=== PATIENT | male | born 1955 | race Caucasian/White ===

== ENCOUNTER 2022-06-30 19:27 | Emergency (ER) | payer MEDICARE, SELFPAY ==
[2022-06-30] VITALS (19 sets, daily range): BP systolic 125–146; BP diastolic 86–100; RESP 18; TEMP 36.6; O2SAT 89–100
--- NOTE | 2022-06-30 19:28 | ECG_ITS ---
[facility] Test Date: 2022-06-30 Pat Name: Nick Ruby Department: Room: Gender: Male Investigative Analyst: : 1955 Requested By: Jen Ibanez Order Number: [id number] Caitlin MD: Nolberto Bravo M.D. Measurements Intervals [place] Rate: 96 P: 147 PA: 136 QRS: -22 QRSD: 90 T: 141 QT: 347 QTc: 438 Interpretive Statements ECTOPIC ATRIAL RHYTHM LEFT ATRIAL ENLARGEMENT [-0.15mV P-WAVE IN V1/V2] POSSIBLE LATERAL MYOCARDIAL INFARCTION , OF INDETERMINATE AGE [30 ms Q WAVE IN I/aVL/V5/V6] No previous ECG available for comparison Electronically Signed On 07-01-2022 14:46:07 MISSION ANALYST by Nolberto Bravo M.D. [id number]
--- NOTE | 2022-06-30 19:29 | XRR_ITS ---
PROCEDURE INFORMATION: Exam: XR Chest Exam date and time: 06/30/2022 7:48 PM Age: 67 years old Clinical indication: Cough and shortness of breath; Additional info: SOB, weight loss, weakness, nausea, vomiting TECHNIQUE: Imaging protocol: Radiologic exam of the chest. Views: 1 view. COMPARISON: No relevant prior studies available. FINDINGS: Lungs: Unremarkable. No consolidation. Pleural spaces: Unremarkable. No pleural effusion. No pneumothorax. Heart/Mediastinum: Unremarkable. No cardiomegaly. Bones/joints: Unremarkable. XR/XR chest 1V portable [id number] IMPRESSION: No acute findings.
[2022-06-30 19:53] LABS: Basophils # 0.1 10^3/uL (0.0-0.1); Basophils % 0.4 %; Eosinophils % 0.2 %; Hemoglobin 15.6 g/dL (11.7-16.6); Lymphocytes # 1.5 10^3/uL (0.8-4.8); Lymphocytes % 12.4 %; Mean Corpuscular HGB Conc 33.2 g/dL (30.0-36.0); Mean Corpuscular Hemoglobin 29.3 pg (28.0-34.0); Mean Corpuscular Volume 88.3 fl (80-94); Mean Platelet Volume 9.1 fL (7.4-10.4); Monocytes # 0.9 10^3/uL (0.2-0.9); Monocytes % 7.6 %; Neutrophils # 9.36 10^3/uL (1.8-7.7); Neutrophils % 79.1 %; Nucleated Red Blood Cells % 0 %; Platelet Count 528 10^3/cmm (130-400); Red Blood Count 5.32 10^6/uL (4.1-5.3); Red Cell Distribution Width 12.7 % (12.1-15.1); White Blood Count 11.8 10^3/uL (4.0-10.0)
[2022-06-30 20:11] LABS: SARS Covid-2 Antigen negative (Negative)
[2022-06-30 20:12] LABS: Influenza A by IFA negative (Negative); Influenza B by IFA negative (Negative)
[2022-06-30 20:32] LABS: Alanine Aminotransferase 10 U/L (0-41); Albumin Level 4.8 g/dL (3.5-5.2); Alkaline Phosphatase 92 U/L (40-130); Anion Gap 15.6 (5-19); Aspartate Amino Transferase 16 U/L (0-40); Blood Urea Nitrogen 14 mg/dL (8-23); Carbon Dioxide 32 mmol/L (22-29); Chloride 95 mmol/L (98-107); Glomerular Filtration Rate 84.7 mL/min (90-130); Glucose 138 mg/dL (65-115); NT Pro B Type Natriuretic Pept 108 pg/mL (0-125); Osmolality Calculated 289 mOsm/kg (285-295); Potassium 4.6 mmol/L (3.5-5.1); Sodium 138 mmol/L (136-145); Total Protein 8.8 g/dL (6.6-8.7)
[2022-06-30] MEDS: ondansetron 2 mg/ML SDV 2 mL 4 MG IVP (21:50)
[2022-06-30] MEDS: sodium chloride 0.9% 1,000 ML 999 ML IV (21:50)
--- NOTE | 2022-06-30 21:57 | ED_ITS ---
HPI - Nausea/Vomiting/Diarrhea General: Chief complaint: Nausea/Vomiting/Diarrhea Stated complaint: V\SOB\Conjestion\Feve Time Seen by Provider: 06/30/22 21:34 History of Present Illness: Patient is a 67-year-old male comes to the ED with nausea and vomiting. Patient denies any past medical history and states that he has not seen his doctor probably 15 years. Little over a week ago patient started having symptoms of nasal drainage and congestion, cough, shortness of breath, body aches and chills. Those symptoms improved, but yesterday patient started developing nausea and vomiting. He has not been able to keep any food or fluids down since yesterday. He says he has had over 10 episodes of emesis in the last 24 hours. Denies any diarrhea. He states that over the past couple months he has lost over 20 pounds. Denies any black or tarry stools, blood in stool. He usually has 1 BM every couple days. Denies any abdominal pain. Endorses having a fever yesterday. Associated nausea: Yes Associated symtoms: Reports nausea; Denies change in vision, chest pain, dysuria, fatigue, headache(s) or palpitatio ns Review of Systems Const: Reports: fever(s), chills, body aches and change in appetite (Decreased); Denies: fatigue Eyes: Denies: change in vision or eye discomfort ENMT: Denies: throat pain, odynophagia, nasal discharge or nasal congestion Card: Denies: chest pain, palpitations, edema, swelling of feet/ankles, dyspnea on exertion or orthopnea Resp: Reports: dyspnea and productive cough; Denies: non-productive cough GI: Reports: nausea and vomiting; Denies: abdominal pain, diarrhea, constipation or hematochezia : Denies: flank pain, difficulty urinating, dysuria or hematuria Musc: Denies: neck pain, back pain or extremity swelling Skin/Breast: Denies: rash or new lesions Neuro: Denies: headache(s), numbness in extremities or weakness in extremities PFS ED PFSH: Medical History (Updated 07/01/22 @ 03:14 by FARTUN Castillo) No pertinent family history Surgical History (Updated 07/01/22 @ 03:14 by FARTUN Castillo) No pertinent past surgical history Physical Exam Const: COMMON NORMALS: patient oriented x3 GENERAL APPEARANCE: cooperative and comfortable HENMT: COMMON NORMALS: normocephalic HEAD & SCALP: normocephalic MOUTH: Normal oral and palatal mucosa present THROAT: posterior oropharynx normal and uvula midline Neck/C-Spine: COMMON NORMALS: supple GENERAL: Yes normal visual inspection Resp: COMMON NORMALS: normal respiratory effort, No retractions, No use of accessory muscles and clear to auscultation bilaterally AUSCULTATION: clear to auscultation bilaterally Cardio: COMMON NORMALS: regular rate, regular rhythm, S1 normal heart sound present, S2 normal heart sound present, No gallops present (Cardio), No clicks present (Cardio), No murmurs present (Cardio) and Peripheral pulses 2+ throughout RATE: regular rate RHYTHM: regular rhythm HEART SOUNDS: S1 normal heart sound present and S2 normal heart sound present PERIPHERAL PULSES: Peripheral pulses 2+ throughout GI: COMMON NORMALS: Normal to inspection, nondistended, normoactive bowel sounds present, Soft to palpation, non-tender and no masses PALPATION: Yes Soft to palpation OTHER: Abdomen is nontender to palpation in all 4 quadrants : COMMON NORMALS: Yes no CVA tenderness BLADDER/KIDNEY EXAM: Yes no CVA tenderness Back/Pelvis: COMMON NORMALS: no CVA tenderness Extremity: COMMON NORMALS: normal to inspection Neuro: COMMON NORMALS: patient oriented x3 GAIT: Yes Normal gait present Skin: GENERAL SKIN EXAM: dry skin Course 2 Vital Signs: Vital signs: Vital Signs Temperature 98 F 06/30/22 19:29 Pulse Rate 78 07/01/22 00:44 Respiratory Rate 14 07/01/22 00:44 Blood Pressure 155/93 07/01/22 00:44 Pulse Oximetry 97 07/01/22 00:44 Oxygen Delivery Me thod 07/01/22 00:44 MDM - Nausea/Vomiting/Diarrhea Medical Decision Making Patient is a 67-year-old male comes to the ED with nausea and vomiting. Patient denies any past medical history and states that he has not seen his doctor probably 15 years. Little over a week ago patient started having symptoms of nasal drainage and congestion, cough, shortness of breath, body aches and chills. Those symptoms are improving, but yesterday patient started developing nausea and vomiting. He has not been able to keep any food or fluids down since yesterday. He says he has had over 10 episodes of emesis in the last 24 hours. Denies any diarrhea. He states that over the past couple months he has lost over 20 pounds. Denies any black or tarry stools, blood in stool. He usually has 1 BM every couple days. Denies any abdominal pain. Endorses having a fever yesterday. Vitals are stable. Exam of patient is benign and he appears nonto xic in no acute distress. No abdominal tenderness to palpation. White blood cell count of 11.8 but the rest of CBC and CMP are unremarkable. Chest x-ray shows no acute findings. KUB shows no acute findings. COVID and influenza were both negative. Patient was given a liter of IV fluids and nausea meds here in the ED and his symptoms improved and he was feeling better. He was able to tolerate p.o. fluids here in the ED. Nausea and vomiting likely due to viral syndrome. He was diagnosed with bronchitis and viral syndrome and discharged home with a prescription for azithromycin, Medrol Dosepak and Zofran. He was told to have a clear liquid diet for the next 12 to 24 hours and slowly advance diet as tolerated. Return to ED precautions given. Follow-up with your primary care physician within the next week for reevaluation. I discussed with patient that I could refer him to a PCP if needed but he said he wanted to call around and set up his own primary care physician appointment. Patient understood and agreed with plan. Lab Data I reviewed the patient's lab results. 06/30/22 19:41 06/30/22 19:41 Radiology Impressions Chest X-Ray 06/30/22 19:29 IMPRESSION: No acute findings. KUB X-Ray 06/30/22 22:01 IMPRESSION: No acute findings. Laboratory Results WBC 11.8 10^3/uL (4.0-10.0) H 06/30/22 19:41 RBC 5.32 10^6/uL (4.1-5.3) H 06/30/22 19:41 Hgb 15.6 g/dL (11.7-16.6) 06/30/22 19:41 Hct 47.0 % (42.0-52.0) 06/30/22 19:41 MCV 88.3 fl (80-94) 06/30/22 19:41 MCH 29.3 pg (28.0-34.0) 06/30/22 19:41 MCHC 33.2 g/dL (30.0-36.0) 06/30/22 19:41 RDW 12.7 % (12.1-15.1) 06/30/22 19:41 Plt Count 528 10^3/cmm (130-400) H 06/30/22 19:41 MPV 9.1 fL (7.4-10.4) 06/30/22 19:41 Neut % (Auto) 79.1 % 06/30/22 19:41 Lymph % (Auto) 12.4 % 06/30/22 19:41 Runnels % (Auto) 7.6 % 06/30/22 19:41 Eos % (Auto) 0.2 % 06/30/22 19:41 Baso % (Auto) 0.4 % 06/30/22 19:41 Neut # (Auto) 9.36 10^3/uL (1.8-7.7) H 06/30/22 19:41 Lymph # (Auto) 1.5 10^3/uL (0.8-4.8) 06/30/22 19:41 Runnels # (Auto) 0.9 10^3/uL (0.2-0.9) 06/30/22 19:41 Eos # (Auto) 0.0 10^3/uL (0.0-0.8) 06/30/22 19:41 Baso # (Auto) 0.1 10^3/uL (0.0-0.1) 06/30/22 19:41 Nucleated RBC % (auto) 0 % 06/30/22 19:41 Nucleated RBCs # 0.0 /100WBC 06/30/22 19:41 Sodium 138 mmol/L (136-145) 06/30/22 19:41 Potassium 4.6 mmol/L (3.5-5.1) 06/30/22 19:41 Chloride 95 mmol/L (98-107) L 06/30/22 19:41 Carbon Dioxide 32 mmol/L (22-29) H 06/30/22 19:41 Anion Gap 15.6 (5-19) 06/30/22 19:41 BUN 14 mg/dL (8-23) 06/30/22 19:41 Creatinine 0.9 mg/dL (0.7-1.2) 06/30/22 19:41 GFR Calculation 84.7 mL/min (90-130) L 06/30/22 19:41 Glucose 138 mg/dL (65-115) H 06/30/22 19:41 Calculated Osmolality 289 mOsm/kg (285-295) 06/30/22 19:41 Calcium 11.0 mg/dL (8.5-10.5) H 06/30/22 19:41 Total Bilirubin 1.0 mg/dL (0.15-1.2) 06/30/22 19:41 AST 16 U/L (0-40) 06/30/22 19:41 ALT 10 U/L (0-41) 06/30/22 19:41 Alkaline Phosphatase 92 U/L (40-130) 06/30/22 19:41 NT-Pro-B Natriuret Pep 108 pg/mL (0-125) 06/30/22 19:41 Total Protein 8.8 g/dL (6.6-8.7) H 06/30/22 19:41 Albumin 4.8 g/dL (3.5-5.2) 06/30/22 19:41 Globulin 4.0 g/dL (1.3-4.6) 06/30/22 19:41 Influenza Type A Ag negative (Negative) 06/30/22 19:41 Influenza Type B Ag negative (Negative) 06/30/22 19:41 SARS-CoV-2 Ag (Rapid) negative (Negative) 06/30/22 19:41 Discharge Plan Discharge Patient Disposition: Home Clinical Impression: Viral syndrome, Bronchitis Condition: Stable Prescriptions: New azithromycin 250 mg tablet See Rx Instructions .ROUTE .COMPLEX Qty: 6 0RF Rx Instructions: For 250 mg dose pack: take 500 mg today (day 1), then 250 mg for 4 days (days 2-5) ondansetron 4 mg tablet,disintegrating 4 mg PO Q8H PRN (Reason: nausea and vomiting) Qty: 20 0RF Medrol (Pedro) 4 mg tablets,dose pack See Rx Instructions .ROUTE .COMPLEX Qty: 21 0RF Rx Instructions: orally per package directions Discharge Orders: Discharge ED (Routine); Ordered 07/01/22 Ordered By: Tam Lundberg Discharge Diet: Advance as tolerated and Clear Liquid Discharge Activity: Increase activity as tolerated Patient Instructions: Bronchitis (Acute) - Adult, Viral Syndrome (ED) Activity Restrictions/Additional Instructions: Follow-up with primary care provider in the next 5 to 7 days for reevaluation. Clear liquid diet for the next 24 hours and slowly advance diet as tolerated. Take medications as prescribed. Return to the ER or your medical provider if condition worsens. Please read and understand discharge instructions. Thank you for choosing [facility] for your healthcare needs today. Please realize this is an emergency room and that we are providing you with a medical screening exam and this may not be complete and all inclusive of all the testing and or work up that you may need to determine your ailment or severity of your illness. It is very important that you follow up as instructed or that you return to the Emergency Department should you have concerns or if your condition changes or worsens in any way. Coding Level of Care Code ED [employer] for Tyson Lang Exam Comprehensive
--- NOTE | 2022-06-30 22:01 | XRR_ITS ---
PROCEDURE INFORMATION: Exam: XR Abdomen Exam date and time: 06/30/2022 10:07 PM Age: 67 years old Clinical indication: Nausea and vomiting; Additional info: N/v TECHNIQUE: Imaging protocol: Radiologic exam of the abdomen. Views: Frontal supine view of the abdomen. 1 View. COMPARISON: CR (CHEST, ) 06/30/2022 7:48 PM FINDINGS: Gastrointestinal tract: Normal. No bowel dilation. Bones/joints: Unremarkable. XR/XR KUB [id number] IMPRESSION: No acute findings.
[2022-06-30] MEDS: metoclopramide 5 mg/mL SDV 2 mL 10 MG IVP (23:27)
[2022-07-01 00:44] VITALS: BP 155/93; PULSE 78; RESP 14; O2SAT 97
== END 2022-07-01 00:46 | disposition home or self-care (01) ==
PROVIDERS: Emergency Medicine; Emergency Provider Physician Assistant
DX: B34.9 Viral infection, unspecified (principal); J40 Bronchitis, not specified as acute or chronic; Z20.822 Contact with and (suspected) exposure to COVID-19
CPT/HCPCS: 71045; 74018; 80053; 83880; 85025; 87426; 87804; 93005; 96361; 96374; 96375; 99285; J2405; J2765; J7030

== ENCOUNTER 2022-10-03 06:20 | Day surgery (SDC) | payer MEDICARE, SELFPAY ==
[2022-10-01 10:33] VITALS: BMI 24.4
[2022-10-03 06:36] VITALS: BP 123/82; PULSE 55; RESP 18; TEMP 36.1; O2SAT 98
[2022-10-03] MEDS: sodium chloride 0.9% 1,000 ML 30 ML IV (06:41)
--- NOTE | 2022-10-03 07:23 | ANES.PREANE2 ---
Pre-Anesthetic Assessment Height/Weight: Height 1.83 m Weight 81.647 kg Temp Pulse Resp BP Pulse Ox O2 Del Method 97 F L 55 L 18 123/82 98 Room Air 10/03/22 06:36 10/03/22 06:36 10/03/22 06:36 10/03/22 06:36 10/03/22 06:36 10/03/22 06:36 Operation Date: 10/03/22 08:00 Proposed Procedures p [id number] colon Z12.11(Not Applicable) - Herb Garcia DO Familial anesthetic complications: None Was Beta Oswaldo taken within 24 hours: N/A Was Clonidine taken within 24 hours: N/A Last intake: Intake Last Liquid Date 10/02/22 Last Liquid Time 22:00 Last Solid Date 10/01/22 Last Solid Time 20:00 Social No alcohol and No tobacco Exam alert, oriented x 3, clear to auscultation bilaterally and regular rate & rhythm Airway Mallampati: Class I Dentition: full GI pancreatitis in June Anesthetic Plan ASA status: 2 Anesthesia: MAC Risk of > 500 ml blood loss (7ml/kg in children): No Medications/Allergies Home Medications Medication Instructions Recorded Confirmed Last Taken Type No Known Home Medications 09/04/22 10/03/22 Unknown History Allergies Allergy/AdvReac Type Severity Reaction Status Date / Time No Known Allergies Allergy Verified 10/01/22 10:30 Current Medications Generic Name Dose Route Start Last Admin Trade Name Freq PRN Reason Stop Dose Admin Sodium Chloride 1,000 mls @ 30 mls/hr 10/03/22 06:30 10/03/22 06:41 Sodium Chloride 0.9% IV 10/04/22 06:29 30 mls/hr .Q24H PARTHA Administration PFSH Anesthesia Medical History (Updated 08/20/22 @ 17:55 by Uziel Lott MD) No pertinent family history Surgical History (Updated 07/01/22 @ 03:14 by FARTUN Castillo) No pertinent past surgical history Data Anesthesia Cardiac Studies: No Data to Display
--- NOTE | 2022-10-03 08:11 | PM.HP ---
Providers/Chief Complaint Primary Care Provider: Uziel Lott MD Chief Complaint: Z12.11 History of Present Illness Nick Ruby is a 67 year old male who presents for his first screening colonoscopy. He denies any family history of colon cancer, abdominal pain, nausea, emesis, diarrhea, constipation, hematochezia and/or melena. Medications/Allergies Home Medications Medication Instructions Recorded Confirmed Last Taken Type No Known Home Medications 09/04/22 10/03/22 Unknown History Allergies Allergy/AdvReac Type Severity Reaction Status Date / Time No Known Allergies Allergy Verified 10/01/22 10:30 PFSH Acute PFSH: Medical History (Updated 10/03/22 @ 08:12 by Herb Garcia DO) No pertinent family history Surgical History (Updated 07/01/22 @ 03:14 by FARTUN Castillo) No pertinent past surgical history Vitals/I&O/Wt Last Vital Signs Temp 97 F L 10/03/22 06:36 Pulse 55 L 10/03/22 06:36 Resp 18 10/03/22 06:36 BP 123/82 10/03/22 06:36 Pulse Ox 98 10/03/22 06:36 O2 Del Method Room Air 10/03/22 06:36 Weight last 48 hrs Weight 180 lb A&P Assessment and plan (1) Colon cancer screening: Plan Colonoscopy The risks and benefits of the procedure, including bleeding, infection, intestinal perforation requiring surgery, missed lesion were explained to the patient. The patient is understanding of the risks and wishes to proceed. Attestations Medical Necessity Statement*: Home Coding Level of Care Code Acute Code for Chg Fwd Diagnoses Colon cancer screening Z12.11
[2022-10-03 08:45] VITALS: BP 98/68; PULSE 54; RESP 16; TEMP 36.1; O2SAT 100
[2022-10-03 09:08] VITALS: BP 127/81; PULSE 58; RESP 16; O2SAT 99
--- NOTE | 2022-10-03 13:03 | ANE.PACU2 ---
Inpatient post-anesthesia follow up: Airway intact: Yes Vital signs: Temperature 97.0 F Pulse Rate 58 Respiratory Rate 16 Blood Pressure 127/81 Pulse Oximetry 99 Oxygen Delivery Me thod Room Air Oxygen Flow Rate Fraction of Inspir ed Oxygen Hydration adequate: Yes Nausea and vomiting: No Pain level: 1 Mental status: Baseline
== END 2022-10-03 09:15 | disposition home or self-care (01) ==
PROVIDERS: PCP Family Medicine; Visit Provider Surgery
PROC: 0DJD8ZZ Inspection of Lower Intestinal Tract, Via Natural or Artificial Opening Endoscopic (ICD-10-PCS; CPT 45378; principal; 2022-10-03 08:00)
DX: Z12.11 Encounter for screening for malignant neoplasm of colon (principal); K64.8 Other hemorrhoids
CPT/HCPCS: G0121; J2704; J7030

== ENCOUNTER → 2022-11-04 09:23 | Outpatient (BNVA) | payer MEDICARE, SELFPAY | PROVIDERS: PCP Family Medicine; Visit Provider Family Medicine | DX: Z00.00 Encounter for general adult medical examination without abnormal findings (principal); K85.90 Acute pancreatitis without necrosis or infection, unspecified; Z12.5 Encounter for screening for malignant neoplasm of prostate | CPT/HCPCS: 80053; 80061; 84153; 85025 ==